=== PATIENT | male | born 1980 | race Caucasian/White ===

== ENCOUNTER 2016-07-26 19:02 | Emergency (ER) | payer OTHER ==
[2016-07-26] MEDS ORDERED: IBUPROFEN 400 MG TABLET PO ONE (19:11)
[2016-07-26] MEDS ORDERED: PREDNISONE 20 MG TAB PO ONE (19:11)
--- NOTE | 2016-07-26 19:16 | Emergency Department Record ---
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 Patient also reports rash to the forearms bilaterally for approximately 1 weeks, reports "I cut trees and I think I have poison freddie". Patient denies other injury this afternoon, and denies health problems other than previous heart surgery as a child for "hole in the heart". MD Complaint: Extremity pain Onset/Timin -: Hour(s) Location: Forearm History of Same: No -: Yes Arthralgia Radiation: Distal Quality: Aching Consistency: Constant Improves with: Nothing Worsens with: Palpation Associated Symptoms: Denies other symptoms - Related Data Previous Rx's Medication Instructions Recorded Prednisone [Prednisone 20Mg] 20 mg PO BID #18 tab 07/26/16 Allergies Allergy/AdvReac Type Severity Reaction Status Date / Time No Known Drug Allergies Allergy Verified 07/26/16 19:10 Review of Systems Constitutional: Denies: Chills, Fever Eyes: Denies: Eye discharge, Eye pain ENT: Denies: Congestion, Ear pain, Epistaxis Respiratory: Denies: Cough, Dyspnea Cardiovascular: Denies: Chest pain, Dyspnea on exertion Endocrine: Denies: Fatigue, Heat or cold intolerance Gastrointestinal: Denies: Abdominal pain, Nausea, Vomiting Genitourinary: Denies: Incontinence, Retention Musculoskeletal: Reports: Arthralgia. Denies: Back pain, Gout, Joint swelling Skin: Reports: Rash. Denies: Bruising, Change in color Neurological: Denies: Abnormal gait, Confusion, Headache, Seizure Psychiatric: Denies: Anxiety Hematological/Lymphatic: Denies: Anemia, Blood Clots Physical Exam - General General Appearance: Alert, Oriented x3, Cooperative, Mild distress Limitations: No limitations - Head Head exam: Atraumatic, Normocephalic, Normal inspection Head exam detail: negative: Abrasion, Contusion, Márquez's sign, General tenderness, Hematoma, Laceration - Eye Eye exam: Normal appearance. negative: Conjunctival injection, Periorbital swelling, Periorbital tenderness, Scleral icterus - ENT Ear exam: negative: Auricular hematoma, Auricular trauma Nasal Exam: negative: Active bleeding, Discharge, Dried blood, Foreign body Mouth exam: negative: Drooling, Laceration, Muffled voice, Tongue elevation - Neck Neck exam: Normal inspection. negative: Meningismus, Tenderness - Respiratory Respiratory exam: Normal lung sounds bilaterally. negative: Rales, Respiratory distress, Rhonchi, Stridor - Cardiovascular Cardiovascular Exam: Regular rate, Normal rhythm, Normal heart sounds Peripheral Pulses: 3+: Radial (L) - GI/Abdominal GI/Abdominal exam: Soft. 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 Compartments of the forearm are soft on examination.). negative: Calf tenderness, Pedal edema - Back Back exam: Denies: CVA tenderness (R), CVA tenderness (L) - Neurological Neurological exam: Alert, Normal gait, Oriented X3 - Psychiatric Psychiatric exam: Normal affect, Normal mood - Skin Skin exam: Rash Type of lesion: Rash Distribution of rash: RUE, LUE Course Vital Signs 07/26/16 19:09 Temperature 98.6 F Pulse Rate [ 70 Pulse Ox Probe] Respiratory 16 Rate Blood Pressure 124/84 [Right Arm] Pulse Ox 99 - Reevaluation(s) Reevaluation #1: 07/26/16 19:36 Left forearm: No fracture identified Patient was updated on his radiology results, will prescribe Prednisone for his contact dermatitis symptoms. Patient appears stable for discharge at this time. Disposition Disposition: Discharge Clinical Impression: Forearm contusion Qualifiers: Encounter type: initial encounter Laterality: left Qualified Code(s): S50.12XA - Contusion of left forearm, initial encounter Disposition: Home, Self-Care Condition: (2) Stable Instructions: Contusion in Adults (ED) Additional Instructions: Return to ED if your symptoms worsen or if you have any concerns. Follow-up with your family doctor in 3-5 days as directed. Prednisone as directed for your rash symptoms. Prescriptions: Prednisone [Prednisone 20Mg] 20 mg PO BID #18 tab Forms: Patient Portal Access Time of Disposition: 19:38
== END 2016-07-26 19:44 | disposition home or self-care (01) ==
LOC: ER 19:02
DX: S50.12XA Contusion of left forearm, initial encounter (principal); L25.9 Unspecified contact dermatitis, unspecified cause; W22.8XXA Striking against or struck by other objects, initial encounter
CPT/HCPCS: 99283; J7512